=== PATIENT | male | born 1970 | race Caucasian/White ===

== ENCOUNTER 2021-08-27 16:26 | Inpatient (IN) | payer BC, OTHER ==
[~2021-08-27] VITALS: Ht 165.1 cm; Wt 97.5 kg
[2021-08-27 16:28] VITALS: BP 156/89
[2021-08-27] MEDS ORDERED: ATENOLOL 50MG T50 MG PO (16:32)
[2021-08-27 16:54] LABS: BASOPHILS 0.7 % (0.0-2.0); EOSINOPHILS 0.2 % (0.0-3.0); HEMATOCRIT 41.4 % (42.0-52.0); HEMOGLOBIN 14.2 gm/dL (14.0-18.0); LYMPHOCYTES 16.6 % (24.0-44.0); MCH 30.5 pg (26.0-34.0); MCHC 34.4 g/dL (28.0-37.0); MCV 88.6 fL (80.0-100.0); MONOCYTES 9.7 % (1.0-8.0); PLATELET COUNT 195 thou/uL (150-400); POLYS 72.8 % (36.0-66.0); RBC 4.67 mil/uL (4.50-6.00); RDW 12.6 % (10.5-14.5)
[2021-08-27 17:03] LABS: CALCIUM 8.9 mg/dL (8.5-10.1); CREATININE 1.5 mg/dL (0.7-1.3); POTASSIUM 3.9 mmol/L (3.5-5.1)
[2021-08-27 17:09] LABS: ALBUMIN 3.6 g/dL (3.4-5.0); TOTAL BILIRUBIN 0.7 mg/dL (0.2-1.0); TOTAL PROTEIN 6.9 g/dL (6.4-8.2)
[2021-08-27 17:55] LABS: URINE BILIRUBIN NEGATIVE (Negative); URINE BLOOD NEGATIVE (Negative); URINE CLARITY CLEAR; URINE COLOR YELLOW; URINE GLUCOSE-RANDOM* NEGATIVE (Negative); URINE KETONES NEGATIVE (Negative); URINE LEUKOCYTES-REFLEX NEGATIVE (Negative); URINE NITRITE-REFLEX NEGATIVE (Negative); URINE PROTEIN (DIPSTICK) NEGATIVE (Negative); URINE UROBILINOGEN 0.2 E.U./dl (0.2-1.0)
--- NOTE | 2021-08-27 20:10 | NUR ---
TI RIVERA ROUONDED ON PT, PT STANDING NEXT TO BED WITH RUBBING BACK AND PT STANDING HUNCHED OVER. PT REPORTS HE USED THE URINAL AND HE HAD SUDDEN ONSET OF SEVERE PAIN, RATING IT 9/10. PT GIVEN PAIN MEDICATION
[2021-08-27 21:04] VITALS: BP 139/79
--- NOTE | 2021-08-27 21:04 | NUR ---
REPORT CALLED TO FLOOR, GIVEN TO RN
[2021-08-27 21:26] VITALS: BP 136/76
--- NOTE | 2021-08-27 23:53 | NUR ---
PT WAS ADMITTED TO THE UNIT FROM THE ER IN A STABLE CONDITION IN THE COMPANY OF HIS .PT ALERT AND ORIENTED.ADMISSION COMPLETED.PT C/O PAIN TO HIS R FLANK,MANAGED WITH MED.PT'S STATED THAT SHE DID NOT HAVE ANYWHERE TO GO PAST VISITING TIME,[employer] SUPERINTENDENT NOTIFIED,SHE WAS ALLOWED TO STAY THE NIGHT.URINAL AND STRAINER IN THE TOILET FOR PT'S USE.PT EDUCATION GIVEN.PT RESTING ON HIS BED AT THIS TIME.CALL LIGHT WITHIN REACH.
[2021-08-28 05:16] LABS: HEMOGLOBIN 13.6 gm/dL (14.0-18.0); MCH 30.8 pg (26.0-34.0); MCV 90.6 fL (80.0-100.0); RBC 4.41 mil/uL (4.50-6.00); RDW 12.6 % (10.5-14.5); WBC 10.7 thou/uL (4.0-11.0)
[2021-08-28 05:50] LABS: CALCIUM 8.4 mg/dL (8.5-10.1); CREATININE 1.5 mg/dL (0.7-1.3); POTASSIUM 4.2 mmol/L (3.5-5.1)
[2021-08-28 09:17] VITALS: BP 136/78
[2021-08-28] MEDS ORDERED: HYDROCODON-ACE1 EAC7 PO (17:28)
--- NOTE | 2021-08-31 13:07 | PATH ---
[facility] [address] [address] PATHOLOGY RPT PROCEDURE Name: WILLIAM CARL Room #: 441-P DIS IN M.R.#: [id number] Admission: 08/27/21 Date of : 74 Discharge: 08/28/21 Report #: [id number] Path Case #: [id number] [facility] Accession Number: [id number] . 01 Material submitted: . ureter - RIGHT URETER STONE. Modifiers: right . 01 Clinical history: . CYSTOSCOPY WITH STONE MANIPULATION URETERAL STONE . 02 Diagnosis: Calculi, ureterolithiasis, removal: - Calculi/ureterolithiasis (gross diagnosis only). - Specimen forwarded for stone analysis, results to be reported in an addendum when available. [facility] 08/31/2021 0724 Local . 02 Electronically signed: . Lorenzo Tucker MD, Pathologist NPI- [id number] . 01 Gross description: . The specimen is received fresh, labeled "William Carl, right ureter stone". The specimen is a 2 irregular, francis-brown calculi measuring 0.3 x 0.2 x 0.2 cm and 0.4 x 0.3 x 0.3 cm.. The specimen is forwarded to sendouts for further processing. ([facility]; 08/30/2021) . GZA/GZA 08/30/2021 1129 Local . 02 Pathologist provided ICD-10: N20.1 . 02 CPT . 433475 Specimen Comment: A courtesy copy of this report has been sent to [phone] Specimen Comment: [phone], Specimen Comment: Report sent to , DR ROSALES / DR MIGUEL Performed at: [address], [place] [id number] MD Shwa Velasco MD Phone: [phone] Performed at: 02 [facility] [address] , [place], [place] [id number] [address] [address] PATHOLOGY RPT PROCEDURE Name: WILLIAM CARL Room #: 441-P DIS IN M.R.#: [id number] Admission: 08/27/21 Date of : 74 Discharge: 08/28/21 Report #: [id number] Path Case #: [id number] MD Lorenzo Tucker MD Phone: [phone]
== END 2021-08-28 18:15 | disposition home or self-care (01) | DRG 661 ==
LOC: ER 16:26 → 4S 19:06 → EROBS 19:06 → 4S 21:07
PROVIDERS: Emergency Medicine; Nurse Practitioner Family; ADMIT Hospitalist; ATTEND Hospitalist
DX: N13.2 Hydronephrosis with renal and ureteral calculous obstruction (principal); I10 Essential (primary) hypertension; N17.9 Acute kidney failure, unspecified; F17.220 Nicotine dependence, chewing tobacco, uncomplicated; E66.9 Obesity, unspecified; Z20.822 Contact with and (suspected) exposure to COVID-19; Z87.442 Personal history of urinary calculi; Z68.35 Body mass index [BMI] 35.0-35.9, adult; Z83.3 Family history of diabetes mellitus
CPT/HCPCS: 10195; 50010; 50101; 50164; 51179; 51620; 51767; 56674; 56815; 57160; 58565; 62110; 62900; 70005